=== PATIENT | male | born 1995 | race African-American/Black ===

== ENCOUNTER 2021-03-18 14:14 | Inpatient (IN) | payer OTHER ==
[~2021-03-18] VITALS: Ht 170.2 cm; Wt 90.4 kg
[2021-03-18 14:46] LABS: BASOPHIL 0.4 % (0-2); EOSINOPHIL 3.4 % (0-5); HCT 42.9 % (42.0-52.0); HGB 14.8 g/dl (13.2-18.0); LYMPHOCYTE 57.5 % (15-48); MCH 27.9 pg (25.0-31.0); MCHC 34.5 g/dL (32.0-36.0); MCV 80.8 fL (78.0-100.0); MONOCYTE 15.2 % (0-12); MPV 9.3 fL (6.0-9.5); NEUTROPHIL 23.3 % (41-80); NRBC 0; PLT 442 K/uL (150-400); RBC 5.31 M/uL (4.70-6.00); RDW 12.6 % (11.5-14.0); WBC 4.5 K/uL (4.0-10.5)
[2021-03-18 14:51] LABS: INR 1.1 (0.9-1.2); PROTHROMBIN TIME 13.5 SECONDS (11.4-13.6); PTT 29.9 SECONDS (22.2-34.7)
[2021-03-18 15:02] LABS: BUN 13 mg/dL (7-18); BUN/CREAT RATIO (CALC) 23.6 RATIO; CHLORIDE 104 mmol/L (98-107); CO2 (BICARBONATE) 29 mmol/L (21-32); CREATININE 0.55 mg/dL (0.67-1.17); GLUCOSE 111 mg/dL (74-106)
[2021-03-18 15:10] LABS: CKMB <0.5 ng/mL (0.0-3.6)
[2021-03-18 17:24] LABS: BILIRUBIN NEGATIVE (NEGATIVE); BLOOD NEGATIVE Ery/uL (NEGATIVE); CLARITY CLEAR (CLEAR); COLOR YELLOW (YELLOW); GLUCOSE (U) NORMAL (NORMAL); LEUKOCYTES NEGATIVE Leu/uL (NEGATIVE); NITRITE NEGATIVE (NEGATIVE); PROTEIN NEGATIVE (NEGATIVE); SPECIFIC GRAVITY 1.015 (1.001-1.030); UROBILINOGEN 0.2 mg/dL (0.2-1.0)
[2021-03-19 03:43] LABS: BASOPHIL 0.4 % (0-2); EOSINOPHIL 3.3 % (0-5); HCT 40.4 % (42.0-52.0); HGB 13.9 g/dl (13.2-18.0); LYMPHOCYTE 58.1 % (15-48); MCHC 34.4 g/dL (32.0-36.0); MCV 81.3 fL (78.0-100.0); MPV 9.2 fL (6.0-9.5); NRBC 0; PLT 393 K/uL (150-400); RBC 4.97 M/uL (4.70-6.00); RDW 12.9 % (11.5-14.0); WBC 5.7 K/uL (4.0-10.5)
[2021-03-19 04:02] LABS: BUN/CREAT RATIO (CALC) 24.5 RATIO; CREATININE 0.49 mg/dL (0.67-1.17); POTASSIUM 3.8 mmol/L (3.5-5.1)
[2021-03-19] MEDS ORDERED: LOPRESSOR50 MG PO (15:17)
[2021-03-19] MEDS ORDERED: TAPAZOLE10 M1 PO (15:17)
== END 2021-03-19 16:00 | disposition home or self-care (01) | DRG 310 ==
LOC: FER 14:14 → FTCU 15:59
PROVIDERS: Emergency Medicine; Nurse Practitioner; ADMIT Internal Medicine
DX: I48.91 Unspecified atrial fibrillation (principal); F17.290 Nicotine dependence, other tobacco product, uncomplicated; I10 Essential (primary) hypertension; E05.90 Thyrotoxicosis, unspecified without thyrotoxic crisis or storm; E05.00 Thyrotoxicosis with diffuse goiter without thyrotoxic crisis or storm; I11.9 Hypertensive heart disease without heart failure; Z20.822 Contact with and (suspected) exposure to COVID-19
CPT/HCPCS: 36415; 71045; 80048; 81003; 82553; 83520; 84439; 84443; 84481; 84484; 85025; 85610; 85730; 93005; J1650; U0002